=== PATIENT | male | born 1950 | race Caucasian/White ===

== ENCOUNTER → 2016-11-18 | Outpatient (CLI) | payer MEDICARE ==
[~2016-11-18] MED LIST: ASPIRIN 32325 MG/TAB PO; GLUCOTROL10 M1 PO; ISMO20 MG PO; ISORDIL SL; LIPITOR 80MG80 MG PO; METFORMIN; METOPROLOL25 MG PO; NITROSTAT0.4 MG/TAB SL; NORCO 325 MG-51 TAB PO; PERCOCET 325 MG1 TA2 PO; PLAVIX 75MG TAB75 MG PO; insulin
== END ==
LOC: SUN.DIA 15:50
DX: E11.65 Type 2 diabetes mellitus with hyperglycemia (principal); Z79.4 Long term (current) use of insulin; Z79.84 Long term (current) use of oral hypoglycemic drugs; Z68.29 Body mass index [BMI] 29.0-29.9, adult; Z71.3 Dietary counseling and surveillance; I10 Essential (primary) hypertension

== ENCOUNTER → 2017-01-26 | Outpatient (CLI) | payer MEDICARE | LOC: SUN.DIA 12-29 11:53 | DX: E11.65 Type 2 diabetes mellitus with hyperglycemia (principal); Z79.4 Long term (current) use of insulin; Z79.84 Long term (current) use of oral hypoglycemic drugs; Z68.30 Body mass index [BMI] 30.0-30.9, adult; Z71.3 Dietary counseling and surveillance; I10 Essential (primary) hypertension ==

== ENCOUNTER → 2017-04-28 | Outpatient (CLI) | payer MEDICARE | LOC: SUN.DIA 11:36 | DX: E11.65 Type 2 diabetes mellitus with hyperglycemia (principal); Z79.4 Long term (current) use of insulin; Z68.29 Body mass index [BMI] 29.0-29.9, adult; Z71.3 Dietary counseling and surveillance; I10 Essential (primary) hypertension | CPT/HCPCS: G0108 ==

== ENCOUNTER → 2017-06-24 | Outpatient (CLI) | payer MEDICARE | LOC: COL.RAD 06-15 11:35 | DX: C61 Malignant neoplasm of prostate (principal) | CPT/HCPCS: A9503 ==

== ENCOUNTER → 2017-08-03 | Outpatient (CLI) | payer MEDICARE | LOC: SUN.DIA 08-02 10:40 | DX: E11.9 Type 2 diabetes mellitus without complications (principal); Z79.4 Long term (current) use of insulin; I10 Essential (primary) hypertension; Z68.31 Body mass index [BMI] 31.0-31.9, adult; Z71.3 Dietary counseling and surveillance | CPT/HCPCS: G0108 ==

== ENCOUNTER → 2017-11-15 | Outpatient (CLI) | payer MEDICARE | LOC: SUN.DIA 08:07 | DX: E11.9 Type 2 diabetes mellitus without complications (principal); Z79.4 Long term (current) use of insulin; I10 Essential (primary) hypertension; Z68.31 Body mass index [BMI] 31.0-31.9, adult; Z71.3 Dietary counseling and surveillance | CPT/HCPCS: G0108 ==

== ENCOUNTER 2017-12-03 01:28 | Emergency (ER) | payer MEDICARE ==
[~2017-12-03] VITALS: Ht 170.2 cm; Wt 88.6 kg
[~2017-12-03 01:28] MED LIST changes: -ASPIRIN 32325 MG/TAB PO; +ASPIRIN 81M81 MG/TA2 PO; +GLUCOPHAGE1000 MG PO; -GLUCOTROL10 M1 PO; +GLUCOTROL10 MG PO; -METFORMIN
[2017-12-03 01:31] VITALS: TEMP 97.9
[2017-12-03] MEDS ORDERED: LANTUS100 U/ML SQ (01:37)
[2017-12-03 02:22] LABS: COLLECTION METHOD CLEAN CATCH
[2017-12-03 02:27] LABS: BASO % 0.4 % (0.0-2.0); EOS % 0.4 % (0-4.0); GRAN # 5.4 (1.4-6.5); GRAN % 72.6 % (42.2-75.2); HEMATOCRIT 34.4 % (42.0-52.0); HEMOGLOBIN 11.6 g/dl (13.5-18.0); LYMPH % 13.7 % (20.0-51.0); MEAN CELL VOLUME 91 fl (80.0-100.0); MEAN CORPUSCULAR HEMOGLOBIN 31 pg (27.0-31.0); MEAN CORPUSCULAR HGB CONC 34 g/dl (33.0-37.0); MEAN PLATELET VOLUME 9.6 fl (7.4-10.4); MONO # 0.9 (0.1-0.6); MONO % 12.5 % (1.7-9.3); PLATELET COUNT 250 K/mm3 (130-400); RED BLOOD COUNT 3.77 M/mm3 (4.20-5.60); REDCELL DISTRIBUTION WIDTH-CV 13.1 % (11.5-14.5)
[2017-12-03 02:33] LABS: PH 5 (5-8); SQUAMOUS EPITHELIAL 0-2 /hpf; URINE APPEARANCE Clear; URINE BACTERIA None Seen /hpf; URINE BILIRUBIN Negative (NEGATIVE); URINE BLOOD Negative (NEGATIVE); URINE COLOR Yellow; URINE GLUCOSE 1+ (NEGATIVE); URINE KETONE Negative (NEGATIVE); URINE LEUKOCYTE ESTERASE Negative (NEGATIVE); URINE NITRATE Negative (NEGATIVE); URINE PROTEIN(semi-quant) Negative (NEGATIVE); URINE RBC 0-2 /hpf; URINE UROBILINOGEN Negative (NEGATIVE)
[2017-12-03 02:41] LABS: ALBUMIN 3.9 gm/dL (3.5-5.0); BILIRUBIN,TOTAL 0.4 mg/dL (0.0-1.0); C-REACTIVE PROTEIN 0.8 mg/dL (0.0-0.9); CALCIUM 9.2 mg/dL (8.4-10.2); CREATININE, serum 1.75 mg/dL (0.66-1.25); POTASSIUM 4.7 mmol/L (3.4-5.0); TOTAL PROTEIN 7.3 gm/dL (6.4-8.2)
[2017-12-03] MEDS ORDERED: CEFTIN 250250 MG/TAB PO (04:58)
[2017-12-03 05:23] VITALS: BP 195/92; PULSE 75
== END 2017-12-03 05:45 | disposition home or self-care (01) ==
LOC: COL.ER 01:28
PROVIDERS: Emergency Medicine
DX: R33.9 Retention of urine, unspecified (principal); C61 Malignant neoplasm of prostate; I25.10 Atherosclerotic heart disease of native coronary artery without angina pectoris; E11.9 Type 2 diabetes mellitus without complications; Z95.5 Presence of coronary angioplasty implant and graft; Z79.82 Long term (current) use of aspirin; Z79.4 Long term (current) use of insulin
CPT/HCPCS: A4314; J0696; J2405; J3010; J7030

== ENCOUNTER 2018-01-17 22:47 | Emergency (ER) | payer MEDICARE ==
[~2018-01-17] VITALS: Ht 167.6 cm; Wt 86.4 kg
[~2018-01-17 22:47] MED LIST changes: +CEFTIN 250250 MG/TAB PO; +LANTUS100 U/ML SQ
[2018-01-17 22:49] VITALS: BP 214/96; TEMP 98.1
[2018-01-18] MEDS ORDERED: FLOMAX 0.40.4 MG/CAP PO (00:06)
[2018-01-18 00:39] LABS: COLLECTION METHOD CLEAN CATCH
[2018-01-18 00:49] LABS: MUCOUS Present /lpf; PH 5 (5-8); SQUAMOUS EPITHELIAL 0-2 /hpf; URINE APPEARANCE Hazy; URINE BACTERIA Rare /hpf; URINE BILIRUBIN Negative (NEGATIVE); URINE BLOOD 1+ (NEGATIVE); URINE COLOR Yellow; URINE GLUCOSE 2+ (NEGATIVE); URINE KETONE Negative (NEGATIVE); URINE LEUKOCYTE ESTERASE 3+ (NEGATIVE); URINE NITRATE Negative (NEGATIVE); URINE PROTEIN(semi-quant) Negative (NEGATIVE); URINE UROBILINOGEN Negative (NEGATIVE)
[2018-01-18] MEDS ORDERED: CIPRO 500MG TA500 MG PO (01:14)
[2018-01-18 01:59] VITALS: PULSE 86
[2018-01-20] MEDS ORDERED: BACTRIM DS 8001 TAB PO (13:21)
== END 2018-01-18 01:53 | disposition home or self-care (01) ==
LOC: COL.ER 22:47
PROVIDERS: Emergency Medicine
DX: N39.0 Urinary tract infection, site not specified (principal); N40.1 Benign prostatic hyperplasia with lower urinary tract symptoms; R33.9 Retention of urine, unspecified; E11.9 Type 2 diabetes mellitus without complications; Z79.82 Long term (current) use of aspirin; Z79.4 Long term (current) use of insulin
CPT/HCPCS: A4314

== ENCOUNTER → 2018-04-07 | Outpatient (CLI) | payer MEDICARE ==
[~2018-04-07] MED LIST changes: +BACTRIM DS 8001 TAB PO; +CIPRO 500MG TA500 MG PO; +FLOMAX 0.40.4 MG/CAP PO
== END ==
LOC: SUN.DIA 02-14 15:13
DX: E11.9 Type 2 diabetes mellitus without complications (principal); Z79.4 Long term (current) use of insulin; I10 Essential (primary) hypertension; Z68.30 Body mass index [BMI] 30.0-30.9, adult; Z71.3 Dietary counseling and surveillance
CPT/HCPCS: G0108

== ENCOUNTER → 2018-08-02 | Outpatient (CLI) | payer MEDICARE | LOC: SUN.DIA 09:24 | DX: E11.9 Type 2 diabetes mellitus without complications (principal); I10 Essential (primary) hypertension | CPT/HCPCS: G0108 ==

== ENCOUNTER → 2019-01-02 | Outpatient (CLI) | payer MEDICARE | LOC: SUN.DIA 08:56 | DX: E11.9 Type 2 diabetes mellitus without complications (principal); I10 Essential (primary) hypertension | CPT/HCPCS: G0108 ==

== ENCOUNTER → 2019-07-03 | Outpatient (CLI) | payer MEDICARE | LOC: DIA.ED 08:12 | DX: E11.9 Type 2 diabetes mellitus without complications (principal); I10 Essential (primary) hypertension; E66.9 Obesity, unspecified; Z79.4 Long term (current) use of insulin | CPT/HCPCS: G0108 ==

== ENCOUNTER → 2019-10-03 | Outpatient (CLI) | payer MEDICARE | LOC: DIA.ED 08:49 | DX: E11.9 Type 2 diabetes mellitus without complications (principal); E78.5 Hyperlipidemia, unspecified; I10 Essential (primary) hypertension; E66.9 Obesity, unspecified; Z79.4 Long term (current) use of insulin | CPT/HCPCS: G0270 ==

== ENCOUNTER 2022-03-15 09:04 | Inpatient (IN) | payer MEDICARE, MEDICAID ==
[~2022-03-15] VITALS: Ht 167.6 cm; Wt 82.4 kg
[2022-03-15] MEDS ORDERED: TRESIBA FL200 UNIT/1 SQ (09:13)
[2022-03-15 09:23] LABS: BASO % 0.3 % (0.0-2.0); EOS % 0.4 % (0.0-4.0); GRAN # 4.5 K/mm3 (1.4-6.5); GRAN % 63.2 % (42.2-75.2); HEMATOCRIT 45.1 % (42.0-52.0); LYMPH # 1.9 K/mm3 (1.2-3.4); LYMPH % 27.2 % (20.0-51.0); MEAN CELL VOLUME 88 fl (80.0-100.0); MEAN CORPUSCULAR HEMOGLOBIN 31 pg (27-31); MEAN CORPUSCULAR HGB CONC 36 g/dl (33.0-37.0); MEAN PLATELET VOLUME 10.3 fl (7.4-10.4); MONO # 0.6 K/mm3 (0.1-0.6); MONO % 8.8 % (1.7-9.3); PLATELET COUNT 233 K/mm3 (130-400); RED BLOOD COUNT 5.13 M/mm3 (4.20-5.60); REDCELL DISTRIBUTION WIDTH-CV 12.4 % (11.5-14.5)
[2022-03-15 09:38] LABS: PROTHROMBIN TIME 11.1 SECONDS (9.7-12.8)
[2022-03-15 09:49] LABS: ALBUMIN 3.9 gm/dL (3.4-4.8); BILIRUBIN,TOTAL 0.7 mg/dL (0.2-1.2); C-REACTIVE PROTEIN 0.45 mg/dL (0.00-0.50); CALCIUM 9.6 mg/dL (8.4-10.2); CREATININE, serum 1.46 mg/dL (0.72-1.25); POTASSIUM 4.6 mmol/L (3.5-4.5); TOTAL PROTEIN 7.6 gm/dL (6.2-8.1)
--- NOTE | 2022-03-15 15:11 | NUR ---
PT ADMITTED TO UNIT. ADMISSION INTAKE AND ASSESSMENT COMPLETED. MED RED UPDATED. PT DENIES ANY COMPLAINTS AT THIS TIME. ORIENTED TO ROOM, SON AT BEDSIDE. WILL CONTINUE TO MONITOR.
[2022-03-15 15:27] VITALS: BP 172/57; PULSE 82; TEMP 98.5
--- NOTE | 2022-03-15 15:31 | NUR ---
CONTACTED DR. BEATTY ABOUT BS OF 465 AT THIS TIME. NO VERBAL ORDERS GIVEN AT THIS TIME. WILL CONTINUE TO MONITOR.
--- NOTE | 2022-03-15 18:19 | NUR ---
CE PASCUAL SWALLOW STUDY COMPLETED, TOLERATING WELL, WILL ADVANCE FOR THE EVENING.
[2022-03-15 19:21] VITALS: BP 143/65; PULSE 85; TEMP 98.4
[2022-03-15 23:53] VITALS: BP 138/64; PULSE 77; TEMP 98.5
[2022-03-16 04:14] VITALS: BP 143/105; BP 147/75; PULSE 75; PULSE 76; TEMP 97.6; TEMP 98.9
--- NOTE | 2022-03-16 04:14 | NUR ---
RESTED THROUGH THE NIGHT. NPO FOR MRI THIS AM. NEEDS MET.
[2022-03-16 07:04] LABS: BASO # 0.1 K/mm3 (0.0-0.2); BASO % 0.7 % (0.0-2.0); EOS # 0.1 K/mm3 (0.0-0.7); EOS % 0.8 % (0.0-4.0); GRAN # 4.2 K/mm3 (1.4-6.5); GRAN % 58.4 % (42.2-75.2); HEMATOCRIT 44.8 % (42.0-52.0); HEMOGLOBIN 15.7 g/dl (13.5-18.0); LYMPH # 2.1 K/mm3 (1.2-3.4); LYMPH % 29.5 % (20.0-51.0); MEAN CELL VOLUME 90 fl (80.0-100.0); MEAN CORPUSCULAR HEMOGLOBIN 31 pg (27-31); MEAN CORPUSCULAR HGB CONC 35 g/dl (33.0-37.0); MEAN PLATELET VOLUME 10.9 fl (7.4-10.4); MONO # 0.8 K/mm3 (0.1-0.6); MONO % 10.5 % (1.7-9.3); PLATELET COUNT 240 K/mm3 (130-400); REDCELL DISTRIBUTION WIDTH-CV 12.5 % (11.5-14.5)
[2022-03-16 07:30] LABS: CALCIUM 8.9 mg/dL (8.4-10.2); CREATININE, serum 1.4 mg/dL (0.72-1.25); POTASSIUM 4.1 mmol/L (3.5-4.5)
[2022-03-16 07:56] VITALS: BP 165/71; PULSE 80; TEMP 97.5
[2022-03-16 08:01] LABS: CHOLESTEROL RISK RATIO 4.9
--- NOTE | 2022-03-16 08:54 | NUR ---
pt taken down for mri, tele notified.
--- NOTE | 2022-03-16 09:00 | NUR ---
PT PLEASANT. 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 SCALING/FLAKING BLE, PT DENIES PAIN, ASSESSMENT PERFORMED, MEDICTAIONS GIVEN, NO OTHER NEEDS
--- NOTE | 2022-03-16 09:39 | NUR ---
RECIEVED VERBAL CONFIRMATION TO CHANGE DIET BACK TO [facility] AFTER MRI COMPLETION. ASSISTED PT IN CALLING THE KITCHEN.
--- NOTE | 2022-03-16 10:29 | NUR ---
SHARIFA met with the patient and his son, Kyle Ibrahim (ph#[phone]), to discuss discharge plan. The patient lives alone in [place]. Kyle also lives in [place]. The patient reports independence with ADLs and does not have any DME. The patient's PCP is Dr. David Harris and he receives his medications from [facility]. The patient has a DPOA-HC in EMR that designates his late sister. The patient was interested in completing a new DPOA-HC while here. SHARIFA provided the form. The patient designated his son, Kyle, and then his daughter, María Medina (ph#[phone]), as the alternate. SHARIFA and KAREN Metzger, witnessed the patient's signature. SHARIFA provided the patient with the original and some copies. SHARIFA placed a copy in the patient's chart. The patient plans on returning home upon discharge. PT notified SHARIFA that the patient would benefit from home health. SHARIFA discussed this with the patient and his son. The patient and his son are interested in home health. SHARIFA provided them with Medicare.gov's list of home health agencies that serve [place]. Kyle states that his sister just established some cleaning and in-home services for the patient and that the agency she chose, also provides other services. He plans to check with his sister on the name of the agency and plans to contact SHARIFA with the agency name. *Discharge plan: home with home health*
[2022-03-16 11:30] VITALS: BP 150/61; PULSE 81; TEMP 98.2
[2022-03-16 17:11] VITALS: BP 164/73; PULSE 79; TEMP 98
[2022-03-16 19:07] VITALS: BP 153/68; PULSE 86; TEMP 98.6
[2022-03-17 00:18] VITALS: BP 141/52; PULSE 87; TEMP 98.2
--- NOTE | 2022-03-17 01:18 | NUR ---
PATIENT ALERT AND ORIENTED. MEDS PER EMAR. DENIES PAIN, REPORTS MINIMAL TINGLING TO L HAND. IV TO R FA PATENT AND FLUSHES EASILY. CURRENTLY SLEEPING IN BED, RR EVEN AND UNLABORED. CALL LIGHT IN REACH.
[2022-03-17 04:16] VITALS: BP 167/80; PULSE 74; TEMP 97.4
[2022-03-17 06:53] LABS: BASO % 0.5 % (0.0-2.0); EOS % 0.5 % (0.0-4.0); GRAN # 4.1 K/mm3 (1.4-6.5); GRAN % 63.3 % (42.2-75.2); HEMATOCRIT 41.5 % (42.0-52.0); HEMOGLOBIN 14.9 g/dl (13.5-18.0); LYMPH # 1.7 K/mm3 (1.2-3.4); LYMPH % 25.5 % (20.0-51.0); MEAN CELL VOLUME 88 fl (80.0-100.0); MEAN CORPUSCULAR HEMOGLOBIN 32 pg (27-31); MEAN CORPUSCULAR HGB CONC 36 g/dl (33.0-37.0); MEAN PLATELET VOLUME 10.9 fl (7.4-10.4); MONO # 0.6 K/mm3 (0.1-0.6); MONO % 9.9 % (1.7-9.3); PLATELET COUNT 233 K/mm3 (130-400); RED BLOOD COUNT 4.72 M/mm3 (4.20-5.60); REDCELL DISTRIBUTION WIDTH-CV 12.2 % (11.5-14.5)
[2022-03-17 07:13] LABS: CALCIUM 8.5 mg/dL (8.4-10.2); CREATININE, serum 1.26 mg/dL (0.72-1.25); POTASSIUM 3.8 mmol/L (3.5-4.5)
[2022-03-17 07:41] VITALS: BP 179/79; PULSE 71; TEMP 97.6
[2022-03-17] MEDS ORDERED: PLAVIX 75MG TAB75 MG PO (08:47)
[2022-03-17] MEDS ORDERED: LIPITOR 40MG TA40 MG PO (08:47)
[2022-03-17] MEDS ORDERED: NORVASC 10MG10 MG PO (08:48)
[2022-03-17] MEDS ORDERED: PROTONIX 40MG T40 MG PO (08:48)
--- NOTE | 2022-03-17 09:40 | NUR ---
The clinical team is ready to discharge the patient today. SHARIFA met with the patient, his son, and other family member to follow up on preference for home health. The patient's family states that they had just got the patient set up with private duty services from [facility]. [facility] does not provide traditional home health. The patient's son chose [facility]. SHARIFA contacted and faxed a referral to Nathalia at [facility]. Nathalia states that she needs to check the patient's [employer] benefits, to make sure the patient is covered. SHARIFA to continue to follow.
--- NOTE | 2022-03-17 11:34 | NUR ---
DISCHARGE EDUCATION PROVIDED TO PT AND PT FAMILY. PT PLEASANT, VERBALIZED UNDERSTANDING. ESCORTED OUT VIA WHEELCHAIR.
--- NOTE | 2022-03-17 11:51 | NUR ---
Nathalia, at [facility], reports that they are able to accept the patient. The patient is to discharge back home today, 03/17, with home health services for prison/PT/OT from [facility]. No additional needs at this time.
== END 2022-03-17 11:36 | disposition home health service (06) | DRG 66 ==
LOC: COL.ER 09:04 → MEDICAL 11:28
PROVIDERS: Family Medicine; Physician Assistant
DX: I63.231 Cerebral infarction due to unspecified occlusion or stenosis of right carotid arteries (principal); C61 Malignant neoplasm of prostate; I25.10 Atherosclerotic heart disease of native coronary artery without angina pectoris; E78.5 Hyperlipidemia, unspecified; I12.9 Hypertensive chronic kidney disease with stage 1 through stage 4 chronic kidney disease, or unspecified chronic kidney disease; N18.9 Chronic kidney disease, unspecified; E11.22 Type 2 diabetes mellitus with diabetic chronic kidney disease; R29.700 NIHSS score 0; Z95.5 Presence of coronary angioplasty implant and graft; Z79.82 Long term (current) use of aspirin; Z79.4 Long term (current) use of insulin; Z95.1 Presence of aortocoronary bypass graft
CPT/HCPCS: 99223-AI; 99239; A9575; J1650; J1815; Q9967

== ENCOUNTER 2023-01-01 10:31 | Day surgery (SDC) | payer MEDICARE, MEDICAID ==
[~2023-01-01] VITALS: Ht 167.6 cm; Wt 89.6 kg
[~2023-01-01 10:31] MED LIST changes: +LIPITOR 40MG TA40 MG PO; +NORVASC 10MG10 MG PO; +PROTONIX 40MG T40 MG PO; +TRESIBA FL200 UNIT/1 SQ
[2023-01-01 11:30] VITALS: BP 159/60; PULSE 69; TEMP 97.5
[2023-01-01] MEDS ORDERED: BENICAR40 MG PO (11:43)
[2023-01-01] MEDS ORDERED: LASIX 40MG TABL40 MG PO (11:44)
[2023-01-01] MEDS ORDERED: TYLENOL 500MG500 MG PO (14:42)
[2023-01-01] MEDS ORDERED: NORCO 325 MG-51 TAB PO (14:42)
[2023-01-01 15:15] VITALS: BP 150/55; PULSE 65; TEMP 97.4
[2023-01-01 15:26] VITALS: TEMP 97
[2023-01-01 15:30] VITALS: BP 153/54; PULSE 68
[2023-01-01 15:45] VITALS: BP 132/56; PULSE 62
--- NOTE | 2023-01-01 16:35 | NUR ---
1515 PT RETURNED TO [facility] VIA CART. ALERT AND ORIENTED. MONITORS ATTACHED, INTERVALS AND ALARMS SET. VSS. PT DENIES PAIN OR NAUSEA. FOOD AND DRINK PROVIDED. CALL LIGHT IN REACH. 1530 VSS. PT DENIES DISCOMFORT. TOLERATING FOOD AND DRINK WELL. 1545 VSS. PT DENIES DISCOMFORT. 1620 REVIEWED DISCHARGE INSTRUCTIONS AND EDUCATION MATERIAL, ANSWERED ALL QUESTIONS. IV REMOVED WITHOUT COMPLICATIONS. ASSISTED TO DRESS. 1635 TRANSFERRED PT VIA WHEELCHAIR TO PERSONAL VEHICLE TO BE DRIVEN HOME BY DAUGHTER.
== END 2023-01-01 16:45 | disposition home or self-care (01) ==
LOC: SDCO 10:31
DX: L97.429 Non-pressure chronic ulcer of left heel and midfoot with unspecified severity (principal); M79.5 Residual foreign body in soft tissue; Z79.01 Long term (current) use of anticoagulants
CPT/HCPCS: J0690; J1100; J1885; J2405; J2704; J3010; J7030

== ENCOUNTER 2024-01-19 10:31 | Inpatient (IN) | payer MEDICARE ==
[~2024-01-19] VITALS: Ht 167.6 cm; Wt 78.6 kg
[~2024-01-19 10:31] MED LIST changes: +BENICAR40 MG PO; +CEFTIN500 MG PO; +DOXYCYCLINE HY100 MG PO; +LASIX 20MG TABL20 MG PO; +LASIX 40MG TABL40 MG PO; +LEVAQUIN 750MG750 M1 PO; +TRIAMCINOLONE ACETON TOP; +TYLENOL 500MG500 MG PO
[2024-01-19] MEDS ORDERED: NS 1,000 ML IV ONE ×2 (11:15→14:45)
[2024-01-19 11:17] LABS: BASO % 0.3 % (0.0-2.0); EOS # 0.1 K/mm3 (0.0-0.7); EOS % 0.6 % (0.0-4.0); GRAN # 5.5 K/mm3 (1.4-6.5); GRAN % 60.4 % (42.2-75.2); HEMOGLOBIN 10.8 g/dl (13.5-18.0); LYMPH # 2.3 K/mm3 (1.2-3.4); LYMPH % 25.2 % (20.0-51.0); MEAN CELL VOLUME 86 fl (80.0-100.0); MEAN CORPUSCULAR HEMOGLOBIN 28 pg (27-31); MEAN CORPUSCULAR HGB CONC 32 g/dl (33.0-37.0); MEAN PLATELET VOLUME 9.6 fl (7.4-10.4); MONO # 1.2 K/mm3 (0.1-0.6); MONO % 13.2 % (1.7-9.3); PLATELET COUNT 348 K/mm3 (130-400); RED BLOOD COUNT 3.88 M/mm3 (4.20-5.60)
[2024-01-19 11:18] LABS: HEMATOCRIT 33.5 % (42.0-52.0)
[2024-01-19 11:44] LABS: ALBUMIN 3.3 gm/dL (3.4-4.8); BILIRUBIN,TOTAL 0.3 mg/dL (0.2-1.2); CALCIUM 9.4 mg/dL (8.4-10.2); CREATININE, serum 6.24 mg/dL (0.72-1.25); POTASSIUM 5.5 mmol/L (3.5-4.5); TOTAL PROTEIN 7.5 gm/dL (6.2-8.1)
[2024-01-19 12:23] LABS: COLLECTION METHOD CLEAN CATCH
[2024-01-19 13:13] LABS: PH 5.5 (5.0-8.5); URINE APPEARANCE TURBID (CLEAR/HAZY); URINE COLOR YELLOW (YELLOW)
[2024-01-19 13:14] LABS: URINE BLOOD 2+ (NEGATIVE); URINE GLUCOSE TRACE (NEGATIVE); URINE KETONE NEGATIVE (NEGATIVE); URINE NITRATE NEGATIVE (NEGATIVE); URINE PROTEIN(semi-quant) 2+ (BEGATIVE); URINE UROBILINOGEN 0.2 E.U/dL (0.2-1.0)
[2024-01-19] MEDS ORDERED: NS 1,000 ML IV SCH (14:45)
[2024-01-19] MEDS ORDERED: Acetaminophen 500 MG TAB PO PRN (14:45)
[2024-01-19] MEDS ORDERED: cefTRIAXone 1 G in Water For Injection,Sterile 10 ML IV SCH (14:45)
[2024-01-19] MEDS ORDERED: Polyethylene Glycol 3350 17 GM PDS PO PRN (14:45)
[2024-01-19] MEDS ORDERED: Ondansetron 4 MG/2 ML VIAL IV PRN (14:45)
[2024-01-19 15:22] VITALS: BP 111/51; PULSE 79; TEMP 98
[2024-01-19] MEDS ORDERED: TRIAMC 0.025 80 TOP (15:41)
[2024-01-19] MEDS ORDERED: NOVOLOG FLEX100 U/ML SQ (15:43)
[2024-01-19] MEDS ORDERED: JARDIANCE10 PO (15:43)
[2024-01-19] MEDS ORDERED: ATARAX 25MG25 MG/TAB PO (15:44)
[2024-01-19] MEDS ORDERED: TYLENOL 500MG500 MG PO (15:45)
[2024-01-19] MEDS ORDERED: ASPIRIN E.C. 8181 MG PO (15:45)
[2024-01-19] MEDS ORDERED: Heparin 5,000 UNITS/ML 1 ML VIAL SQ SCH (16:00)
[2024-01-19] MEDS ORDERED: Dextrose 50% Water 25 GM/50 ML SYRINGE IV PRN (16:45)
[2024-01-19] MEDS ORDERED: Glucagon 1 MG VIAL IM PRN (16:45)
[2024-01-19] MEDS ORDERED: Dextrose (Glucose) 15 GM (4 x 3.75 GM) Chewable TABLET PACK PO PRN (16:45)
[2024-01-19] MEDS ORDERED: Insulin Lispro (HumaLOG) SQ SCH (17:00)
[2024-01-19 17:44] VITALS: BP_SYST 111
[2024-01-19 19:24] VITALS: BP 115/56; PULSE 78; TEMP 97.5
[2024-01-19 21:00] VITALS: BP_SYST 115
[2024-01-19] MEDS ORDERED: Atorvastatin 40 MG TAB PO SCH (21:00)
[2024-01-19 23:23] VITALS: BP 105/64; PULSE 83; TEMP 98
[2024-01-20] VITALS (11 sets, daily range): BP systolic 105–174; BP diastolic 54–73; PULSE 73–88; TEMP 97.7–98
--- NOTE | 2024-01-20 02:03 | NUR ---
patient lying in bed, alert and oriented x4. pt denies chest pain and shortness of breath. up to bathroom multiple times, weak gait but able to ambulate well x1 assist. IV in RF is patent, site is clean dry and intact with NS running at 100ml/hr. small scattered bruising on extremities., hard of hearing. fall precautions in place, call light within reach. will continue to monitor.
[2024-01-20 06:45] LABS: BASO % 0.4 % (0.0-2.0); EOS # 0.1 K/mm3 (0.0-0.7); GRAN # 5.6 K/mm3 (1.4-6.5); GRAN % 57.8 % (42.2-75.2); LYMPH # 2.7 K/mm3 (1.2-3.4); LYMPH % 28.4 % (20.0-51.0); MEAN CELL VOLUME 85 fl (80.0-100.0); MEAN CORPUSCULAR HGB CONC 32 g/dl (33.0-37.0); MONO # 1.2 K/mm3 (0.1-0.6); MONO % 12.2 % (1.7-9.3); PLATELET COUNT 303 K/mm3 (130-400); RED BLOOD COUNT 3.48 M/mm3 (4.20-5.60)
[2024-01-20 06:55] LABS: HEMATOCRIT 29.7 % (42.0-52.0); HEMOGLOBIN 9.5 g/dl (13.5-18.0); MEAN CORPUSCULAR HEMOGLOBIN 27 pg (27-31)
[2024-01-20 07:09] LABS: CALCIUM 8.7 mg/dL (8.4-10.2); CREATININE, serum 4.66 mg/dL (0.72-1.25); MAGNESIUM 2.4 mg/dL (1.6-2.6); POTASSIUM 5.2 mmol/L (3.5-4.5)
--- NOTE | 2024-01-20 07:26 | NUR ---
CRITICAL BLOOD GLUCOSE OF 50 CALLED BY LAB. PCT CHECKED AND BLOOD SUGAR 48. PT GIVEN 1 ORANGE JUICE AND 2 DOMINIC, CRACKERS. PT THEN GIVEN 2 DEXTROSE TABS WHILE AWAITING BREAKFAST. PT ASYMPTOMATIC AT THIS TIME AND DENIES NEEDS.
[2024-01-20] MEDS ORDERED: Insulin Glargine-ygfn (Lantus) SQ SCH ×3 (07:55→21:00)
[2024-01-20] MEDS ORDERED: Insulin Lispro (HumaLOG) SQ SCH (08:00)
[2024-01-20] MEDS ORDERED: Clopidogrel 75 MG TAB PO SCH (09:00)
--- NOTE | 2024-01-20 09:30 | NUR ---
PT LAYING IN BED UPON ENTERING. ASSESSMENT DONE, MEDS GIVEN PER ORDER. PT DENIES PAIN. NS RUNNING AT 100 MLS/HR PER ORDER IN RIGHT WRIST IV. PTS BILATERAL LOWER EXTREMITY HAVE BROWN DISCOLORATION, SKIN INTACT. PT DENIES NEEDS. BED IN LOWEST POSITION, CALL LIGHT IN REACH, BED ALARM ON
[2024-01-20] MEDS ORDERED: LR 1,000 ML IV SCH (11:15)
--- NOTE | 2024-01-20 12:51 | NUR ---
NS STOPPED AND LR STARTED AT 100 MLS/HR PER ORDER
--- NOTE | 2024-01-20 14:51 | NUR ---
Bottling Attendant met with patient to discuss discharge planning. Patient's son
--- NOTE | 2024-01-20 14:53 | NUR ---
Stringed Instrument Tuner met with patient to discuss discharge planning. Patient's son, Kyle (ph#[phone]) is at bedside. Patient lives at [facility] and sees Dr. Bryan for primary care. Patient advised AL gets his medications from [facility] and they manage/administer them. Patient gets assistance with bathing, but is mostly independent with other ADLS. Patient denies any DME usage and stated he walks without any assistive devices. Patient relies on either family or AL to transport him to appointments. Patient has DPOA-HC in EMR designating Kyle and his daughter, María (ph#[phone]). Patient plans to return to [facility] at time of discharge. SHARIFA contacted [facility] and faxed updates. SW was contacted again by [facility] stating they did not go through so SW refaxed them. Discharge Plan: [facility]
[2024-01-21] VITALS (14 sets, daily range): BP systolic 151–185; BP diastolic 73–77; PULSE 69–94; TEMP 97.3–98.5
--- NOTE | 2024-01-21 02:59 | NUR ---
patient lying in bed, alert and oriented x4. pt denies chest pain and shortness of breath. IV in RF is patent, site is clean dry and intact with LR running at 100ml/hr. red/purplish BLE with no pain/tenderness, small scattered bruising on extremities and abd noted. pt has no further needs, questions, or concerns at thist mima. fall precautions in place, call light within reach. will continue to monitor.
[2024-01-21 07:02] LABS: CREATININE, serum 3.06 mg/dL (0.72-1.25); POTASSIUM 4.7 mmol/L (3.5-4.5)
--- NOTE | 2024-01-21 07:31 | NUR ---
NOTIFIED DOCTOR OF GLUCOSE CRITICAL LAB VALUE. GAVE PATIENT REMAINDER TABLETS OF DEXTROSE CHEWABLE AND ORANGE JUICE. PATIENT EXPRESSES FEELING FINE, NO HYPOGLYCEMIC SYMPTOMS APPARENT BESIDES LAB VALUE. CALL LIGHT WITHIN REACH.
[2024-01-21] MEDS ORDERED: Fosfomycin 3 G PACKET PO SCH (12:00)
[2024-01-21] MEDS ORDERED: hydrALAZINE 20 MG/ML 1 ML VIAL IV ONE (16:15)
--- NOTE | 2024-01-21 16:29 | NUR ---
Manager Diversity met with patient to follow up on Home Health services. Patient was up to use the bathroom and advised SW should contact his son, Kyle. SW contacted Kyle and reviewed HH options. Kyle believes patient has used [facility] in the past and would like to use them again. SW faxed referral to [facility]. SHARIFA also notified [facility] of possible discharge tomorrow. Discharge Plan: [facility]
--- NOTE | 2024-01-21 20:00 | NUR ---
PT ALERT AND ORIENTED, VSS. UPON ENTERING PT RESTING IN BED. ASKING TO GET UP FREQUENLY THROUGHOUT SHIFT TO USE THE RESTROOM. PASSING LOTS OF GAS. SHIFT ASSESSMENT COMPLETE, MEDICATED PER EMAR. IV PATENT WITH FLUIDS RUNNING. DENIES FURTHER NEED AT THIS TIME. CALL LIGHT WITHIN REACH, BED ALARM SET.
[2024-01-21] MEDS ORDERED: Insulin Glargine-ygfn (Lantus) SQ SCH (21:00)
[2024-01-22] VITALS (7 sets, daily range): BP systolic 117–167; BP diastolic 66–81; PULSE 69–80; TEMP 97.4–97.5
--- NOTE | 2024-01-22 08:10 | NUR ---
NOTIFIED PROVIDER OF LOW BLOOD GLUCOSE 54. PATIENT IS ASYMPTOMATIC. GAVE APPLE JUICE AND GLUCOSE TABLETS. WILL RECHECK IN 30 MINUTES.
--- NOTE | 2024-01-22 09:46 | NUR ---
ASSESSMENT COMPLETE. MORNING BLOOD SUGAR WAS 54, PROVIDER NOTIFIED. BLOOD SUGAR RECHECK WAS 156. EXPLAINED TO PATIENT THE IMPORTANCE OF NEEDING TO CALL FOR ASSISTANCE WHEN GOING TO THE RESTROOM WELL USING WALKER FOR AMBULATION. FAMILY IS AT BEDSIDE AND EXPRESSED UNDERSTANDING OF INSTRUCTIONS GIVEN TO MAVIS. CALL LIGHT WITHIN REACH AND ALL ALARMS ON.
--- NOTE | 2024-01-22 12:13 | NUR ---
SHAIRFA informed that patient would be discharging to [facility] with [facility] on this day. SHARIFA faxed discharge documenation to both agencies. SHARIFA informed by son that patient would be transported by him.
--- NOTE | 2024-01-22 13:04 | NUR ---
PATIENT RECEIVED DISCHARGE PAPERWORK, ACKNOWLEDGED UNDERSTANDING OF FOLLOW UP APPOINTMENTSN AND HOME HEALTH ORDER. IV DISCONTINUED TELEMETRY DISCONTINUED
--- NOTE | 2024-01-22 13:47 | NUR ---
3678-PATIENT LEFT UNIT VIA WHEELCHAIR WITH FAMILY. ESCORTED TO EXIT BY STAFF
--- NOTE | 2024-01-24 13:16 | NUR ---
Lighting Technician was contacted by [facility] and they are not in network with patient's insurance. SHARIFA contacted Sharon (ph#[phone]) with [employer] [facility] and she advised they are in network with [facility] . SHARIFA contacted [facility] and faxed referral with discharge orders. SHARIFA also updated [facility] [place].
== END 2024-01-22 13:40 | disposition home or self-care (01) | DRG 683 ==
LOC: COL.ER 10:31 → MEDICAL 12:50
PROVIDERS: Personal Emergency Response Attendant; ADMIT Internal Medicine
DX: N17.9 Acute kidney failure, unspecified (principal); N39.0 Urinary tract infection, site not specified; N18.32 Chronic kidney disease, stage 3b; E87.5 Hyperkalemia; D64.9 Anemia, unspecified; E86.0 Dehydration; I95.9 Hypotension, unspecified; E11.8 Type 2 diabetes mellitus with unspecified complications; Z79.4 Long term (current) use of insulin; I25.10 Atherosclerotic heart disease of native coronary artery without angina pectoris; Z95.1 Presence of aortocoronary bypass graft; E78.5 Hyperlipidemia, unspecified; K21.9 Gastro-esophageal reflux disease without esophagitis; N40.0 Benign prostatic hyperplasia without lower urinary tract symptoms
CPT/HCPCS: J0360; J0696; J1644; J1815; J7030; J7120

== ENCOUNTER 2024-01-27 07:25 | Emergency (ER) | payer MEDICARE ==
[~2024-01-27] VITALS: Ht 170.2 cm; Wt 90.9 kg
[~2024-01-27 07:25] MED LIST changes: +ASPIRIN E.C. 8181 MG PO; +ATARAX 25MG25 MG/TAB PO; +JARDIANCE10 PO; +NOVOLOG FLEX100 U/ML SQ; +TRIAMC 0.025 80 TOP
[2024-01-27 07:33] VITALS: TEMP 97.6
[2024-01-27 08:22] LABS: BASO % 0.4 % (0.0-2.0); EOS # 0.1 K/mm3 (0.0-0.7); EOS % 1.4 % (0.0-4.0); GRAN # 6.5 K/mm3 (1.4-6.5); GRAN % 64.9 % (42.2-75.2); LYMPH # 2.4 K/mm3 (1.2-3.4); LYMPH % 24.3 % (20.0-51.0); MEAN CELL VOLUME 86 fl (80.0-100.0); MEAN CORPUSCULAR HEMOGLOBIN 28 pg (27-31); MEAN CORPUSCULAR HGB CONC 33 g/dl (33.0-37.0); MEAN PLATELET VOLUME 9.6 fl (7.4-10.4); MONO # 0.8 K/mm3 (0.1-0.6); MONO % 8.4 % (1.7-9.3); PLATELET COUNT 311 K/mm3 (130-400); RED BLOOD COUNT 3.54 M/mm3 (4.20-5.60); REDCELL DISTRIBUTION WIDTH-CV 14.6 % (11.5-14.5)
[2024-01-27 08:41] LABS: BILIRUBIN,TOTAL 0.2 mg/dL (0.2-1.2); CALCIUM 8.8 mg/dL (8.4-10.2); CREATININE, serum 2.02 mg/dL (0.72-1.25); MAGNESIUM 1.9 mg/dL (1.6-2.6); PHOSPHOROUS 2.5 mg/dL (2.3-4.7); TOTAL PROTEIN 6.9 gm/dL (6.2-8.1)
[2024-01-27 08:48] LABS: HEMATOCRIT 30.6 % (42.0-52.0)
[2024-01-27 08:59] LABS: COLLECTION METHOD CLEAN CATCH
[2024-01-27 09:31] LABS: URINE APPEARANCE CLOUDY (CLEAR/HAZY); URINE BLOOD 3+ (NEGATIVE); URINE COLOR YELLOW (YELLOW); URINE GLUCOSE NEGATIVE (NEGATIVE); URINE KETONE NEGATIVE (NEGATIVE); URINE NITRATE NEGATIVE (NEGATIVE); URINE PROTEIN(semi-quant) 1+ (NEGATIVE); URINE UROBILINOGEN 0.2 E.U/dL (0.2-1.0)
[2024-01-27] MEDS ORDERED: BACTRIM DS 8001 TAB PO (09:51)
[2024-01-27 09:54] VITALS: BP 156/70; PULSE 79
== END 2024-01-27 10:07 | disposition home or self-care (01) ==
LOC: COL.ER 07:25
PROVIDERS: Emergency Medicine
DX: R31.9 Hematuria, unspecified (principal); D64.9 Anemia, unspecified; R30.0 Dysuria; R79.89 Other specified abnormal findings of blood chemistry; E87.5 Hyperkalemia; R82.81 Pyuria; R80.9 Proteinuria, unspecified; Z88.0 Allergy status to penicillin; Z88.1 Allergy status to other antibiotic agents

== ENCOUNTER → 2024-02-15 | Outpatient (CLI) | payer MEDICARE, MEDICAID | LOC: COL.RAD 08:10 | DX: N28.89 Other specified disorders of kidney and ureter (principal); M48.56XA Collapsed vertebra, not elsewhere classified, lumbar region, initial encounter for fracture; M48.061 Spinal stenosis, lumbar region without neurogenic claudication ==

== ENCOUNTER 2024-08-22 15:24 | Inpatient (IN) | payer MEDICARE, MEDICAID ==
[~2024-08-22] VITALS: Ht 170.2 cm; Wt 94.9 kg
[~2024-08-22 15:24] MED LIST changes: -COREG12.5 MG PO; -IMODIUM 2MG CAPS2 MG PO; -SOLIQUA 100 UNIT3 ML SQ
[2024-08-22 16:11] LABS: BASO % 0.4 % (0.0-2.0); EOS # 0.1 K/mm3 (0.0-0.7); EOS % 1.3 % (0.0-4.0); GRAN # 5.1 K/mm3 (1.4-6.5); GRAN % 65.6 % (42.2-75.2); LYMPH # 1.8 K/mm3 (1.2-3.4); LYMPH % 22.7 % (20.0-51.0); MEAN CELL VOLUME 89 fl (80.0-100.0); MEAN CORPUSCULAR HEMOGLOBIN 28 pg (27-31); MEAN CORPUSCULAR HGB CONC 31 g/dl (33.0-37.0); MEAN PLATELET VOLUME 10.8 fl (7.4-10.4); MONO # 0.8 K/mm3 (0.1-0.6); MONO % 9.9 % (1.7-9.3); PLATELET COUNT 209 K/mm3 (130-400); RED BLOOD COUNT 3.95 M/mm3 (4.20-5.60); REDCELL DISTRIBUTION WIDTH-CV 14.7 % (11.5-14.5)
[2024-08-22 16:18] LABS: ERYTHROCYTE SEDIMENTATION RATE 30 mm/hr (0-30)
[2024-08-22 16:26] LABS: ALBUMIN 3.2 g/dL (3.4-4.8); BILIRUBIN,TOTAL 0.3 mg/dL (0.2-1.2); C-REACTIVE PROTEIN 1.02 mg/dL (0.00-0.50); CALCIUM 8.7 mg/dL (8.4-10.2); CREATININE, serum 2.09 mg/dL (0.72-1.25); TOTAL PROTEIN 6.9 g/dl (6.2-8.1)
[2024-08-22 16:35] LABS: TROPONIN-I 0.055 ng/mL (0.00-0.033)
[2024-08-22] MEDS ORDERED: Iohexol 300 - 100 ML VIAL IV ONE (16:51)
[2024-08-22] MEDS ORDERED: NS 100 ML IV SCH (16:52)
[2024-08-22] MEDS ORDERED: Ondansetron 4 MG/2 ML VIAL IV PRN (18:00)
[2024-08-22] MEDS ORDERED: Acetaminophen 500 MG TAB PO PRN (18:00)
[2024-08-22] MEDS ORDERED: Furosemide 100 MG/10 ML VIAL IV SCH (18:03)
[2024-08-22] MEDS ORDERED: Glucagon 1 MG VIAL IM PRN (19:15)
[2024-08-22] MEDS ORDERED: Dextrose 50% Water 25 GM/50 ML SYRINGE IV PRN (19:15)
[2024-08-22] MEDS ORDERED: Dextrose (Glucose) 15 GM (4 x 3.75 GM) Chewable TABLET PACK PO PRN (19:15)
[2024-08-22] MEDS ORDERED: IMODIUM 2MG CAPS2 MG PO (19:44)
[2024-08-22] MEDS ORDERED: FLOMAX 0.40.4 MG/CAP PO (19:54)
[2024-08-22] MEDS ORDERED: SOLIQUA 100 UNIT3 ML SQ (19:58)
[2024-08-22 20:20] LABS: COLLECTION METHOD CLEAN CATCH
--- NOTE | 2024-08-22 20:45 | NUR ---
PATIENT ARRIVED TO ROOM 317 AT 2030 VIA WHEELCHAIR AND ACCOMPANIED BY SON. WAS ABLE TO AMBULATE FROM WHEELCHAIR TO BED WITH STANDBY ASSIST X 1. SON STATES THAT PATIENT HAS BEEN TOLD THAT HE IS SUPPOSED TO BE USING A WALKER BUT REFUSES TO. GAIT IS UNSTEADY. EDUCATED TANK FURNACE OPERATOR LIGHT USE AND ENSURED CALL LIGHT IS WITHIN REACH. BED IS LOCKED AND IN LOW POSITION WITH BED ALARM ON.
[2024-08-22 20:57] LABS: PH 5.5 (5.0-8.5); URINE APPEARANCE CLEAR (CLEAR/HAZY); URINE BLOOD NEGATIVE (NEGATIVE); URINE COLOR YELLOW (YELLOW); URINE GLUCOSE NEGATIVE (NEGATIVE); URINE KETONE NEGATIVE (NEGATIVE); URINE NITRATE NEGATIVE (NEGATIVE); URINE PROTEIN(semi-quant) TRACE (NEGATIVE); URINE UROBILINOGEN 0.2 E.U/dL (0.2-1.0)
[2024-08-22] MEDS ORDERED: Insulin Glargine-ygfn (Lantus) SQ SCH (21:00)
[2024-08-22] MEDS ORDERED: Insulin Lispro (HumaLOG) SQ SCH (21:00)
[2024-08-22 21:09] VITALS: BP_SYST 150
[2024-08-23] VITALS (12 sets, daily range): BP systolic 93–165; BP diastolic 50–91; PULSE 67–91; TEMP 97.4–98.3
[2024-08-23] MEDS ORDERED: Heparin 5,000 UNITS/ML 1 ML VIAL SQ SCH
--- NOTE | 2024-08-23 00:17 | NUR ---
PATIENT NONCOMPLIANT WITH CALL LIGHT USE. EACH TIME PATIENT ATTEMPTS TO GET OUT OF BED ON HIS OWN STAFF DOES REEDUCATE ON NEED TO USE CALL LIGHT. CALL LIGHT WITHIN REACH. BED ALARM ON.
--- NOTE | 2024-08-23 03:04 | NUR ---
PCT HEARD PATIENTS PHONE GOING OFF TO ALERT HIM HIS BLOOD SUGAR WAS LOW. WHEN SUGAR WAS CHECKED WITH GLUCOMETER, METER READ 38. OUTBOARD MOTOR TESTER AWARE. GIVEN DEXTROSE CHEWS PER HYPOGLYCEMIC PROTOCOL.
--- NOTE | 2024-08-23 08:19 | NUR ---
PATIENT AWAKE AND ALERT, SITTING UP IN BED. PATIENT ASSESSMENT COMPLETED. HE DENIES ANY NEEDS OR COMPLAINTS AT THIS TIME, CALL LIGHT WITHIN REACH. FALL PRECAUTIONS IN PLACE.
--- NOTE | 2024-08-23 08:30 | NUR ---
PA MADE AWARE OF PATIENT TROP LEVEL. NO NEW ORDERS AT THIS TIME.
[2024-08-23 09:26] LABS: BASO % 0.3 % (0.0-2.0); EOS # 0.1 K/mm3 (0.0-0.7); EOS % 1.2 % (0.0-4.0); GRAN # 4.2 K/mm3 (1.4-6.5); GRAN % 65.4 % (42.2-75.2); HEMOGLOBIN 11.3 g/dl (13.5-18.0); LYMPH # 1.4 K/mm3 (1.2-3.4); LYMPH % 22.3 % (20.0-51.0); MEAN CELL VOLUME 87 fl (80.0-100.0); MEAN CORPUSCULAR HEMOGLOBIN 28 pg (27-31); MEAN CORPUSCULAR HGB CONC 32 g/dl (33.0-37.0); MEAN PLATELET VOLUME 10.7 fl (7.4-10.4); MONO # 0.7 K/mm3 (0.1-0.6); MONO % 10.5 % (1.7-9.3); PLATELET COUNT 218 K/mm3 (130-400); RED BLOOD COUNT 4.01 M/mm3 (4.20-5.60); REDCELL DISTRIBUTION WIDTH-CV 14.8 % (11.5-14.5)
[2024-08-23 09:47] LABS: CALCIUM 8.6 mg/dL (8.4-10.2); CREATININE, serum 2.28 mg/dL (0.72-1.25); POTASSIUM 4.3 mEq/L (3.5-4.5)
[2024-08-23 09:56] LABS: TROPONIN-I 0.066 ng/mL (0.00-0.033)
--- NOTE | 2024-08-23 10:22 | NUR ---
Initial visit; Patient and family thanked Tmr Teacher for looking in on him and letting him know of the availability of Spiritual Care at our hospital. He thanked Tmr Teacher for offering God's blessings.
--- NOTE | 2024-08-23 11:00 | NUR ---
MD AWARE OF PATIENT LOW BLOOD GLUCOSE DURING NIGHT AND DNEW INITIATION OF DIFFERENT INSULIN AT [facility].
[2024-08-23] MEDS ORDERED: Clopidogrel 75 MG TAB PO SCH (11:30)
--- NOTE | 2024-08-23 11:45 | NUR ---
PATIENT AWAKE AND ALERT, SITTING UP IN BED EATING HIS LUNCH. PATIKEIRA THAS 2 FAMILY MEMBERS AT BEDSIDE. HIS ZION LIGHT WITHIN REACH, FALL PRECAUITION IN PLACE, BED ALARM ON. PATEIN TDENEIS ANY NEEDS, COMPLAINTS OR PAIN AT THIS TIME.
--- NOTE | 2024-08-23 15:25 | NUR ---
Nursing Home Administrator met with patient and his daughter, María (ph#[phone]) to discuss discharge planning. Patient lives at [facility] and sees Dr. Bryan for primary care. Patient advised [facility] manages his medications, which he gets from [facility]. When asked about DME, Iris advised patient should be using a walker or cane, but doesn't. Patient reported he does get assistance with ADLS like bathing. Patient has DPOA-HC in EMR designating his children, Kyle (ph#[phone]) and María. SW contacted [facility] and faxed clinical updates. Per staff at [facility], patient is set up to start PT/OT with the therapy team at [facility]. Discharge Plan; [facility] with PT/OT, therapy evals pending
[2024-08-23] MEDS ORDERED: Perflutren Lipid Microsphere 2 ML VIAL IV ONE (16:00)
[2024-08-23] MEDS ORDERED: Carvedilol 6.25 MG TAB PO SCH (17:00)
[2024-08-23] MEDS ORDERED: Insulin Glargine-ygfn (Lantus) SQ SCH (21:00)
[2024-08-23] MEDS ORDERED: Atorvastatin 40 MG TAB PO SCH (21:00)
--- NOTE | 2024-08-23 21:45 | NUR ---
PATIENT RESTING IN BED. DENIES PAIN. CALL LIGHT WITHIN REACH. BED IS LOCKED AND IN LOW POSITION WITH BED ALARM ON.
[2024-08-24] VITALS (11 sets, daily range): BP systolic 111–160; BP diastolic 71–80; PULSE 67–73; TEMP 97.7–98.4
[2024-08-24 09:52] LABS: BASO % 0.4 % (0.0-2.0); EOS # 0.1 K/mm3 (0.0-0.7); EOS % 1.2 % (0.0-4.0); GRAN # 4.7 K/mm3 (1.4-6.5); GRAN % 60.1 % (42.2-75.2); HEMATOCRIT 38.1 % (42.0-52.0); HEMOGLOBIN 12.1 g/dl (13.5-18.0); LYMPH # 2.1 K/mm3 (1.2-3.4); LYMPH % 27.2 % (20.0-51.0); MEAN CELL VOLUME 87 fl (80.0-100.0); MEAN CORPUSCULAR HEMOGLOBIN 28 pg (27-31); MEAN CORPUSCULAR HGB CONC 32 g/dl (33.0-37.0); MEAN PLATELET VOLUME 11.4 fl (7.4-10.4); MONO # 0.8 K/mm3 (0.1-0.6); MONO % 10.8 % (1.7-9.3); PLATELET COUNT 215 K/mm3 (130-400); RED BLOOD COUNT 4.37 M/mm3 (4.20-5.60); REDCELL DISTRIBUTION WIDTH-CV 14.9 % (11.5-14.5)
[2024-08-24 10:53] LABS: CALCIUM 9.1 mg/dL (8.4-10.2); CREATININE, serum 2.6 mg/dL (0.72-1.25)
[2024-08-24 10:59] LABS: POTASSIUM 6.2 mEq/L (3.5-4.5)
--- NOTE | 2024-08-24 11:37 | NUR ---
NOTIFIED OF PATIENTS SIGNIFICANT INCREASE IN POTASSIUM LEVEL. NEW LAB ORDERED TO VERIFY, LAB CALLED HOWEVER STATED PATINET IS A HARD STICK AND [facility] HAD TO ASSIST. THIS RN LEFT A VM FOR [facility].
--- NOTE | 2024-08-24 15:53 | NUR ---
Catering Server met with patient and son, Kyle to review discharge plan as SHARIFA had been notified son was interested in SNF. Kyle advised they feel patient needs a higher level of care. SHARIFA provided Medicare.gov list of SNF options along with an additional list of facilities that are in network with patient's insurance, [facility]. Kyle would like referral sent to [facility] and may want to consider an out of town facility as his brother lives in [place]. Kyle stated he would review the list. SHARIFA updated Katlyn, Offset Second Press Operator with [employer] (ph#[phone]) and she stated she can work on authorization. SHARIFA was contacted by Carlos at [facility] who advised she can accept referral. SHARIFA updated Kyle with [facility]'s acceptance and followed up on if he wanted referrals sent to other places as well. Kyle stated he would talk with his family and follow up with SHARIFA. Discharge Plan: SNF
--- NOTE | 2024-08-24 22:13 | NUR ---
PATIENT RESTING IN BED. DENIES PAIN. EXPRESSES FRUSTRATION WITH LASIX MAKING HIM HAVE TO URINATE MORE FREQUENTLY. PROVIDED CRACKERS AND PEANUT BUTTER AT PATIENT'S REQUEST. CALL LIGHT WITHIN REACH. BED IS LOCKED AND IN LOW POSITION.
[2024-08-25] VITALS (12 sets, daily range): BP systolic 110–147; BP diastolic 64–98; PULSE 58–74; TEMP 97.5–98.2
[2024-08-25 08:54] LABS: HEMOGLOBIN 12.1 g/dl (13.5-18.0); MEAN CELL VOLUME 85 fl (80.0-100.0); MEAN CORPUSCULAR HEMOGLOBIN 28 pg (27-31); MEAN CORPUSCULAR HGB CONC 33 g/dl (33.0-37.0); MEAN PLATELET VOLUME 10.8 fl (7.4-10.4); PLATELET COUNT 171 K/mm3 (130-400); RED BLOOD COUNT 4.33 M/mm3 (4.20-5.60); REDCELL DISTRIBUTION WIDTH-CV 14.4 % (11.5-14.5)
[2024-08-25 08:55] LABS: HEMATOCRIT 36.9 % (42.0-52.0)
[2024-08-25] MEDS ORDERED: Furosemide 40 MG/4 ML VIAL IV SCH (09:00)
[2024-08-25 09:15] LABS: CALCIUM 9.1 mg/dL (8.4-10.2); CREATININE, serum 2.59 mg/dL (0.72-1.25)
--- NOTE | 2024-08-25 14:04 | NUR ---
ironworker apprentice shop met with patient and his son to review the important message from Medicare in case patient were to discharge tomorrow. Patient and son understood the form. Patient requested son/DPOA-HC sign the form for him. Patient's son/DPOA-HC signed the form. SW made a copy of the form, placed original in chart and provided a copy to patient.
--- NOTE | 2024-08-25 16:42 | NUR ---
Grain Farmworker met with patient and Kyle at bedside to discuss discharge plan. Kyle advised that they are agreeable to go to [facility] for a rehab stay. SHARIFA discussed emt intermediate options including returning to [facility], [facility], or other LTC facilities. Kyle stated they are hoping patient can return to [facility] if able. SERGE completed SHARIFA Marie. SHARIFA spoke with Carlos who advised they can accep tomorrow and pickling operator at 1000. Discharge Plan; [facility]
[2024-08-25] MEDS ORDERED: Carvedilol 6.25 MG TAB PO SCH (17:00)
--- NOTE | 2024-08-25 17:00 | NUR ---
PATIENT AWAKE AND ALERT, SITTING UP IN BED CALL LIGHT WITHIN REACH, HIS FAMILY MEMBER AT BEDSIDE. PATIENT DENIES ANY NEEDS, PAIN OR COMPLAINTS. FALL PRECAUTIONS IN PLACE.
[2024-08-25] MEDS ORDERED: FLOMAX 0.40.4 MG/CAP PO (18:16)
[2024-08-25] MEDS ORDERED: LIPITOR 40MG TA40 MG PO (18:16)
[2024-08-25] MEDS ORDERED: PLAVIX 75MG TAB75 MG PO (18:16)
[2024-08-25] MEDS ORDERED: COREG12.5 MG PO (18:17)
[2024-08-25] MEDS ORDERED: ASPIRIN E.C. 8181 MG PO (18:17)
[2024-08-25] MEDS ORDERED: TYLENOL 500MG500 MG PO (18:18)
[2024-08-25] MEDS ORDERED: PROTONIX 40MG T40 MG PO (18:18)
[2024-08-25] MEDS ORDERED: LASIX 40MG TABL40 MG PO (18:21)
--- NOTE | 2024-08-25 22:15 | NUR ---
Scheduled meds administered per JAN. Shift assessment complete. Lung sounds are diminished over all barron. BLE are edematous pitting +1. SARATH shins are scaly and red in color. Quarter-sized necrotic spot to Rt. big toe. Pt. Denies pain at this time. No further outstanding findings. Call light is in reach and fall precautions in place.
[2024-08-26] VITALS (10 sets, daily range): BP systolic 117–132; BP diastolic 66–77; PULSE 54–70; TEMP 97.4–97.6
[2024-08-26 06:29] LABS: HEMOGLOBIN 10.9 g/dl (13.5-18.0); MEAN CELL VOLUME 85 fl (80.0-100.0); MEAN CORPUSCULAR HEMOGLOBIN 28 pg (27-31); MEAN CORPUSCULAR HGB CONC 33 g/dl (33.0-37.0); PLATELET COUNT 208 K/mm3 (130-400); RED BLOOD COUNT 3.88 M/mm3 (4.20-5.60); REDCELL DISTRIBUTION WIDTH-CV 14.1 % (11.5-14.5)
[2024-08-26 06:41] LABS: HEMATOCRIT 33.1 % (42.0-52.0)
[2024-08-26 06:45] LABS: CALCIUM 8.6 mg/dL (8.4-10.2); CREATININE, serum 2.41 mg/dL (0.72-1.25)
--- NOTE | 2024-08-26 06:51 | NUR ---
Pt resting in bed w/ call light in reach and fall precautions in place. Needs and requests met.
--- NOTE | 2024-08-26 10:30 | NUR ---
SHARIFA visited with medical staff about pending discharge status, contacted [facility] about if scheduled transport- pending for discharge packet. SHARIFA recieved phone call on patients behalf from [facility] requesting discharge packet to be sent direct to [place] for review. SHARIFA sent and awaiting further information on transportation plan at this time.
[2024-08-26] MEDS ORDERED: NOVOLOG FLEX100 U/ML SQ (11:04)
--- NOTE | 2024-08-26 12:16 | NUR ---
SHARIFA was contacted by Carlos with [facility] and she informed SW that she did get the packet for discharge however she informed SW that they would not be able to accept patient until Wednesday and their had been some miscommunication with staff on 10am deadline/ transport arrangement that was previously noted by weekday SW staff. Carlos explained that patient is pending authorization with [facility] ([facility]) and they are not open over the weekend to make the authorize, it will be reviewed Wednesday at this time. SHARIFA will notify medical staff, patient and family on this update.
--- NOTE | 2024-08-26 19:41 | NUR ---
Bedside report received from SAMARA Hinojosa. Pt awake in bed with no complaints. Call light within reach and fall precautions in place.
--- NOTE | 2024-08-26 22:24 | NUR ---
Pt awake in bed with no complaints. Shift assessment completed. VSS. BLE edema noted, non-pitting at this time. BLE scaly/flaky with redness to both extremitites. Dressing to Rt calf intact, with no drainage noted. Pt denies pain rating 0/10. This nurse offered pericare to pt due to excoration in groin area and pt refused. Education provided. INT to Rt forearm patent with no swelling, redness, or drainage. NSR noted on telemetry. Pt ambulates to bathroom and back to bed x1 assist with no complications. Pt has no request at this time. Call light within reach and fall precautions in place.
[2024-08-27] VITALS (9 sets, daily range): BP systolic 119–135; BP diastolic 73–76; PULSE 63–71; TEMP 97.4–97.8
[2024-08-27 07:06] LABS: HEMOGLOBIN 11.3 g/dl (13.5-18.0); MEAN CELL VOLUME 85 fl (80.0-100.0); MEAN CORPUSCULAR HEMOGLOBIN 28 pg (27-31); MEAN CORPUSCULAR HGB CONC 33 g/dl (33.0-37.0); PLATELET COUNT 234 K/mm3 (130-400); RED BLOOD COUNT 4.06 M/mm3 (4.20-5.60)
[2024-08-27 07:09] LABS: HEMATOCRIT 34.4 % (42.0-52.0)
[2024-08-27 07:23] LABS: CALCIUM 8.8 mg/dL (8.4-10.2); CREATININE, serum 2.41 mg/dL (0.72-1.25); POTASSIUM 4.6 mEq/L (3.5-4.5)
--- NOTE | 2024-08-27 19:30 | NUR ---
Bedside report received from SAMARA Hinojosa. Pt awake in bed with no complaints. Call light within reach and fall precautions in place.
--- NOTE | 2024-08-27 21:47 | NUR ---
Pt awake in bed eating peanut butter and crackers. Shift assessment completed. VSS. INT to RFA patent with no swelling, redness, or drainage. Pt denies pain rating 0/10. Telemetry in place. Pt has no request at this time. Call light within reach and fall precautions in place.
[2024-08-28] VITALS (8 sets, daily range): BP systolic 127–159; BP diastolic 64–88; PULSE 68–91; TEMP 97.5–98.1
--- NOTE | 2024-08-28 08:00 | NUR ---
Pt doing okay this morning. No complaints of pain. Pt does have a nursing specialist working with him today. NO needs at this time
[2024-08-28] MEDS ORDERED: Furosemide 40 MG TAB PO SCH (09:00)
[2024-08-28 10:07] LABS: BASO % 0.4 % (0.0-2.0); EOS # 0.1 K/mm3 (0.0-0.7); EOS % 0.7 % (0.0-4.0); GRAN # 5.2 K/mm3 (1.4-6.5); GRAN % 63.3 % (42.2-75.2); HEMOGLOBIN 12.2 g/dl (13.5-18.0); LYMPH # 2.1 K/mm3 (1.2-3.4); LYMPH % 25.6 % (20.0-51.0); MEAN CELL VOLUME 85 fl (80.0-100.0); MEAN CORPUSCULAR HEMOGLOBIN 28 pg (27-31); MEAN CORPUSCULAR HGB CONC 33 g/dl (33.0-37.0); MEAN PLATELET VOLUME 10.9 fl (7.4-10.4); MONO # 0.8 K/mm3 (0.1-0.6); MONO % 9.9 % (1.7-9.3); PLATELET COUNT 236 K/mm3 (130-400); RED BLOOD COUNT 4.33 M/mm3 (4.20-5.60)
[2024-08-28 10:13] LABS: HEMATOCRIT 36.7 % (42.0-52.0)
[2024-08-28 10:37] LABS: CALCIUM 8.7 mg/dL (8.4-10.2); CREATININE, serum 2.56 mg/dL (0.72-1.25); POTASSIUM 4.9 mEq/L (3.5-4.5)
[2024-08-28] MEDS ORDERED: NOVOLOG FLEX100 U/ML SQ (10:54)
[2024-08-28] MEDS ORDERED: LASIX 40MG TABL40 MG PO (10:54)
[2024-08-28] MEDS ORDERED: SOLIQUA 100 UNIT3 ML SQ (10:54)
--- NOTE | 2024-08-28 12:37 | NUR ---
SW attended clinical rounds. Patient stable for discharge and will return to [facility]. SHARIFA spoke with [facility] who can admit patient today and will transport him at 1300. SW met with patient to review Medicare IM form, patient agreeable and signed form. Original on chart and copy to patient. Son present in room and is also agreeable to discharge today. SW sent discharge orders and clinical updates to [facility]. Discharge plan: [facility] SNF
--- NOTE | 2024-08-28 13:15 | NUR ---
Pt doing okay, dressed and ready to discharge to [facility]. Pts son is present in the room. INT removed from right forearm by [facility] nursing director and instructor. Pt currently sitting up in the chair eating his lunch. I did call [facility] and gave report romelia Treadwell. Awaiting transportation at this time
== END 2024-08-28 13:40 | DRG 291 ==
LOC: COL.ER 15:24 → MEDICAL 20:05
PROVIDERS: Emergency Medicine; Internal Medicine; Physician Assistant; ADMIT Internal Medicine
DX: I13.0 Hypertensive heart and chronic kidney disease with heart failure and stage 1 through stage 4 chronic kidney disease, or unspecified chronic kidney disease (principal); I50.31 Acute diastolic (congestive) heart failure; N17.9 Acute kidney failure, unspecified; I50.20 Unspecified systolic (congestive) heart failure; E11.22 Type 2 diabetes mellitus with diabetic chronic kidney disease; N18.32 Chronic kidney disease, stage 3b; R79.89 Other specified abnormal findings of blood chemistry; E11.649 Type 2 diabetes mellitus with hypoglycemia without coma; N18.9 Chronic kidney disease, unspecified; S80.929A Unspecified superficial injury of unspecified lower leg, initial encounter; E78.5 Hyperlipidemia, unspecified; K21.9 Gastro-esophageal reflux disease without esophagitis; N40.0 Benign prostatic hyperplasia without lower urinary tract symptoms; I25.10 Atherosclerotic heart disease of native coronary artery without angina pectoris; Z95.5 Presence of coronary angioplasty implant and graft; Z85.46 Personal history of malignant neoplasm of prostate; Z79.4 Long term (current) use of insulin; Z79.84 Long term (current) use of oral hypoglycemic drugs; Z86.73 Personal history of transient ischemic attack (TIA), and cerebral infarction without residual deficits; Z79.899 Other long term (current) drug therapy; Z88.0 Allergy status to penicillin; Z88.1 Allergy status to other antibiotic agents
CPT/HCPCS: J1644; J1815; J1940; Q9957; Q9967

== ENCOUNTER → 2024-08-22 | Outpatient (CLI) | payer MEDICARE, MEDICAID ==
[~2024-08-22] MED LIST changes: +COREG12.5 MG PO; +IMODIUM 2MG CAPS2 MG PO; +SOLIQUA 100 UNIT3 ML SQ
[2024-08-22 13:59] LABS: BASO % 0.4 % (0.0-2.0); EOS # 0.1 K/mm3 (0.0-0.7); GRAN # 5.4 K/mm3 (1.4-6.5); GRAN % 67.6 % (42.2-75.2); HEMOGLOBIN 11.7 g/dl (13.5-18.0); LYMPH # 1.7 K/mm3 (1.2-3.4); LYMPH % 21.2 % (20.0-51.0); MEAN CELL VOLUME 87 fl (80.0-100.0); MEAN CORPUSCULAR HEMOGLOBIN 28 pg (27-31); MEAN CORPUSCULAR HGB CONC 32 g/dl (33.0-37.0); MEAN PLATELET VOLUME 10.5 fl (7.4-10.4); MONO # 0.8 K/mm3 (0.1-0.6); MONO % 9.6 % (1.7-9.3); PLATELET COUNT 210 K/mm3 (130-400); REDCELL DISTRIBUTION WIDTH-CV 14.6 % (11.5-14.5)
[2024-08-22 14:03] LABS: HEMATOCRIT 36.4 % (42.0-52.0)
[2024-08-22 14:31] LABS: ALBUMIN 3.3 g/dL (3.4-4.8); BILIRUBIN,TOTAL 0.4 mg/dL (0.2-1.2); CALCIUM 8.9 mg/dL (8.4-10.2); CREATININE, serum 2.06 mg/dL (0.72-1.25); POTASSIUM 4.3 mEq/L (3.5-4.5); TOTAL PROTEIN 7.2 g/dl (6.2-8.1)
[2024-08-22 14:47] LABS: TROPONIN-I 0.054 ng/mL (0.00-0.033)
== END ==
LOC: COL.LAB 12:13
PROVIDERS: Family Medicine
DX: J90 Pleural effusion, not elsewhere classified (principal); I51.7 Cardiomegaly

== ENCOUNTER → 2024-09-03 | Outpatient (REF) | payer MEDICARE, MEDICAID ==
[~2024-09-03] MED LIST changes: +COREG12.5 MG PO; +IMODIUM 2MG CAPS2 MG PO; +SOLIQUA 100 UNIT3 ML SQ
[2024-09-03 14:42] LABS: BASO % 0.5 % (0.0-2.0); EOS # 0.1 K/mm3 (0.0-0.7); EOS % 1.2 % (0.0-4.0); GRAN # 4.5 K/mm3 (1.4-6.5); GRAN % 58.6 % (42.2-75.2); HEMATOCRIT 37.4 % (42.0-52.0); HEMOGLOBIN 11.7 g/dl (13.5-18.0); LYMPH # 2.1 K/mm3 (1.2-3.4); LYMPH % 27.5 % (20.0-51.0); MEAN CELL VOLUME 89 fl (80.0-100.0); MEAN CORPUSCULAR HEMOGLOBIN 28 pg (27-31); MEAN CORPUSCULAR HGB CONC 31 g/dl (33.0-37.0); MEAN PLATELET VOLUME 11.4 fl (7.4-10.4); MONO # 0.9 K/mm3 (0.1-0.6); MONO % 12.1 % (1.7-9.3); PLATELET COUNT 249 K/mm3 (130-400)
[2024-09-03 14:56] LABS: ALBUMIN 3.2 g/dL (3.4-4.8); BILIRUBIN,TOTAL 0.3 mg/dL (0.2-1.2); CALCIUM 8.2 mg/dL (8.4-10.2); CREATININE, serum 2.29 mg/dL (0.72-1.25); POTASSIUM 4.4 mEq/L (3.5-4.5); TOTAL PROTEIN 6.8 g/dl (6.2-8.1)
== END ==
LOC: ZCOL.LAB 13:54
PROVIDERS: Family Medicine
DX: I13.0 Hypertensive heart and chronic kidney disease with heart failure and stage 1 through stage 4 chronic kidney disease, or unspecified chronic kidney disease (principal); I50.9 Heart failure, unspecified; N18.9 Chronic kidney disease, unspecified